=== PATIENT | male | born 1950 | race Caucasian/White ===

== ENCOUNTER → 2020-10-01 08:06 | Outpatient (REF) | payer MEDICARE, BC, SELFPAY ==
--- NOTE | 2020-10-01 08:30 | CA_ITS ---
Transthoracic Echocardiogram Patient (Last, First, Middle): Harpreet Fleming R Gender: Male Date of : 1950 Age: 70 Procedure Date: 10/01/2020 Procedure Type: Transthoracic Echocardiogram Location: OP Height: 180.34 cm Weight: 86.18 kg BSA: 2.06 m2 Heart Rate: bpm BP: 110 / 76 mmHg Loading Dock Helper: Jennifer MD: Kodi Mckeon MD Symptoms: PERSISTENT AFIB I48.1 Study Quality: Good ECG Rhythm: Atrial Fibrillation Conclusions: - The left ventricular systolic function is normal. The visually estimated ejection fraction is between 55-60%. - LV global endocardial peak longitudinal strain -14% (mildly reduced). - The left atrium is severely dilated. - No obvious valvular pathology seen on this study. Findings Left Ventricle Normal left ventricular cavity size. There is normal left ventricular wall thickness. The left ventricular systolic function is normal. The visually estimated ejection fraction is between 55-60%. Diastolic function is indeterminate on the basis of available data. LV global endocardial peak longitudinal strain -14% (mildly reduced). Right Ventricle Normal right ventricular cavity size and systolic function. Atria The left atrium is severely dilated. The right atrium is moderately dilated. Aortic Valve There is a normal trileaflet aortic valve. There is mild calcification of the aortic valve. There is no aortic valve stenosis. There is mild aortic valve regurgitation. Mitral Valve The mitral valve appears normal. There is trace mitral valve regurgitation. There is no mitral valve stenosis. Pulmonic Valve The pulmonic valve was not well visualized. Tricuspid Valve Normal tricuspid valve structure. There is mild tricuspid valve regurgitation. The pulmonary artery systolic pressure is normal. Great Vessels The aortic annulus, sinuses of valsalva, and asc aorta are normal in size. Venous The inferior vena cava is normal in size and collapses greater than 50% with inspiration. Pericardium/Pleural There is no evidence of pericardial effusion. Prior Study Comparison No significant change compared to prior study dated: 03/23/2018. Recommendations, Care & Conclusions No obvious valvular pathology seen on this study. Measurements 2D Linear Measurements RVIDd: 3.36 RVIDd Index: 1.63 IVSd: 0.86 0.6-0.9/0.6-1.0 cm LVIDd: 4.87 3.9-5.3/4.2-5.9 cm LVIDd Index: 2.36 2.4-3.2/2.2-3.1 cm/m2 LVIDs: 3.94 2.0-3.6 cm LVPWd: 1.50 0.7-1.1 cm Ao Root: 3.60 2.1-3.5 cm LA Diam: 5.30 2.7-3.8/3.0-4.0 cm LAIDs Index: 2.57 1.5-2.3 cm/m2 LV Mass: 273.09 67-162/88-224 g LV Mass Index: 132.57 43-95/49-115 g/m2 LVOT Diam: 2.20 3.0+(-)1.3 cm 2D Systolic Function EF 4C: 53.60 >55% EF 2C: 45.70 >55% Aortic Valve AoV Pk Garcia: 1.22 AoV Mn Garcia: 0.90 AoV VTI: 0.27 AoV Pk Grad: 6.00 Aov Mn Grad: 4.00 KAMARI Cont.VTI: 1.91 LVOT LVOT Pk Garcia: 0.68 LVOT Mn Garcia: 0.52 LVOT VTI: 0.14 LVOT Pk Grad: 2.00 LVOT Mn Grad: 1.00 LVOT Diam: 2.20 LVOT Area: 3.80 Tricuspid Valve TR Pk Garcia: 2.17 TR Pk Grad: 19.00 RA Press: 8.00 RVSP: 27.00 Great Vessels Aorta Ao Root-2D: 3.60 2.0-3.7 cm Ao Asc: 3.20 2.1-3.4 cm Updated in Other Vendor System with Status of Final oKdi Mckeon MD electronically signed on 10/01/2020 4:09:26 PM with status of Final
--- NOTE | 2020-10-01 09:30 | ECG_ITS ---
Hook-up date: 2020-10-01 10:10:00 Duration: 27:02:00 Test Indications: PERSISTANT AFIB Medications: [id number] QRS complexes 469 Ventricular ectopics which represent <1 % of total QRS comp. * Supraventricular ectopics which represent % of total QRS comp. * Paced QRS complexs which represent % of total QRS comp. VENTRICULAR ECTOPY 469 Isolated 0 Bigeminal Cycles 0 Couplets 0 Runs 0 Beats in Runs * Beats LONGEST at * BPM at :: -- * Beats FASTEST at * BPM at :: -- SUPRAVENTRICULAR ECTOPY * Isolated * Couplets * Runs * Beats in Runs * Beats LONGEST at * BPM at :: -- * Beats FASTEST at * BPM at :: -- HEART RATES 55 MIN at 01:48:13 2020-10-02 86 AVG 147 MAX at 11:54:55 2020-10-01 LONGEST RR 1.7280 secs at 08:08:15 2020-10-02 S-T LEVELS Channel 1 - 128 mm at 10:10:00 2020-10-01 - 128 mm at 10:10:00 2020-10-01 Channel 2 - 128 mm at 10:10:00 2020-10-01 - 128 mm at 10:10:00 2020-10-01 Channel 3 - 128 mm at 02:92:91 -- - 128 mm at 02:92:91 Underlying rhythm is atrial fibrillation; Average ventricular rate 86/min; range 55-147/min; About 12% of the rates >100/min; No significant bradycardia or pauses; Rare ventricular ectopy; Patient did not report any symptoms in the diary Referred By: Shawn Thompson Overread By: SHAWN THOMPSON
== END ==
LOC: HO.CARD 08:06
PROVIDERS: PCP Internal Medicine; Visit Provider Internal Medicine
DX: I48.19 Other persistent atrial fibrillation (principal)
CPT/HCPCS: 93225; 93226; 93306; 93356

== ENCOUNTER → 2020-10-22 09:18 | Outpatient (BNVA) | payer MEDICARE, BC, SELFPAY | PROVIDERS: PCP Internal Medicine; Referring Provider Internal Medicine; Visit Provider Internal Medicine | DX: I48.19 Other persistent atrial fibrillation (principal); R07.2 Precordial pain; G47.31 Primary central sleep apnea; Q21.1 Atrial septal defect; Z79.01 Long term (current) use of anticoagulants | CPT/HCPCS: 93005; 99212 ==

== ENCOUNTER → 2020-10-28 08:18 | Outpatient (REF) | payer MEDICARE, BC, SELFPAY ==
--- NOTE | 2020-10-28 | NM_ITS ---
Myocardial perfusion study Indication: Chest pain to evaluate for myocardial ischemia Technique: The patient was brought in for a Lexiscan perfusion study on 10/28/2020. Patient performed low-level exercise and was injected 0.4 mg of Lexiscan intravenously. Within a minute of injection, 30 mCi of sestamibi was given intravenously. Images were obtained using the SPECT gamma camera interlaced with the gating device. Images were obtained in supine position. Resting perfusion study was performed on 10/29/2020. Patient was administered 30 mCi of sestamibi intravenously at rest. Images were then obtained in supine position. Images obtained with and without CT attenuation. Total DLP 71 mgy-cm. Images were processed with the software and compared side to side in short axis, horizontal long axis and vertical long axis views. Findings: The stress perfusion study showed non attenuated images show minimally reduced uptake in the inferior wall of the LV myocardium. Remainder of the LV myocardium is normally perfused. Attenuation corrected images show normal uptake of radiotracer in all segments of LV myocardium. The gated study shows normal LV systolic function with calculated LVEF of 68%. LV cavity is normal size. The gated study shows normal systolic wall thickening and contraction of segments. Resting study shows no change in perfusion pattern compared to stress perfusion study. Gating at rest reveals normal systolic wall motion with ejection fraction at greater than 70 %. The findings are consistent with normal myocardial perfusion. NM/NM isaias perf SPECT rest & str Impression: 1. Myocardial perfusion imaging study shows normal myocardial perfusion 2. Gated LVEF is 38% 3. Transient ischemic dilatation not present Stress EKG is nondiagnostic for ischemia
--- NOTE | 2020-10-28 08:22 | CA_ITS ---
Acquisition Time: 2020-10-28 08:35:04 Total Exercise Time: 00:02:00 Test Indications: Chest Pain Medications: APIXABAN ATENOLOL ATORVASTATIN LEVOTHYROXINE OMEPRAZOLE Protocol: LEXISCAN Max HR: 136 BPM 90% of Pred: 150 BPM Max BP: 122/068 mmHG Max Work Load: 1.0 METS Pharmacological stress test using Lexiscan while sitting. Pt tolerated well, denies any anginakl sx. EKG with atrial fib. occ, pvc's seen. Non-diagnostic for ischemia. Nuclear images to follow. Normotensive response to test. Test reviewed with Dr. Mckeon Referred By: Kodi Mckeon Overread By: Azucena Whitlock
== END ==
LOC: HO.CARD 08:18
PROVIDERS: PCP Internal Medicine; Visit Provider Internal Medicine
DX: R07.2 Precordial pain (principal)
CPT/HCPCS: 78452; 93017; A9500; J0280; J2785

== ENCOUNTER → 2020-12-17 08:45 | Outpatient (BNVA) | payer MEDICARE, BC, SELFPAY | PROVIDERS: PCP Internal Medicine; Referring Provider Internal Medicine; Visit Provider Nurse Practitioner Family | DX: G47.31 Primary central sleep apnea (principal) | CPT/HCPCS: Q3014 ==

== ENCOUNTER → 2020-12-23 09:55 | Outpatient (BNVA) | payer MEDICARE, BC, SELFPAY | PROVIDERS: PCP Internal Medicine; Visit Provider Internal Medicine | DX: Z76.89 Persons encountering health services in other specified circumstances (principal) | CPT/HCPCS: Q3014 ==

== ENCOUNTER → 2021-03-11 08:55 | Outpatient (BNVA) | payer MEDICARE, BC, SELFPAY | PROVIDERS: PCP Internal Medicine; Visit Provider Nurse Practitioner Family | DX: Z13.89 Encounter for screening for other disorder (principal) | CPT/HCPCS: Q3014 ==

== ENCOUNTER → 2021-06-12 09:04 | Outpatient (BNVA) | payer MEDICARE, BC, SELFPAY | PROVIDERS: PCP Internal Medicine; Visit Provider Internal Medicine | DX: R07.2 Precordial pain (principal); I48.19 Other persistent atrial fibrillation; G47.31 Primary central sleep apnea; Q21.1 Atrial septal defect | CPT/HCPCS: 99212 ==

== ENCOUNTER → 2021-09-09 08:50 | Outpatient (REF) | payer MEDICARE, BC, SELFPAY | LOC: HO.SL 08:50 | PROVIDERS: PCP Internal Medicine; Visit Provider Nurse Practitioner Family | DX: G47.33 Obstructive sleep apnea (adult) (pediatric) (principal) | CPT/HCPCS: 99211 ==

== ENCOUNTER → 2021-09-16 08:32 | Outpatient (BNVA) | payer MEDICARE, BC, SELFPAY | PROVIDERS: PCP Internal Medicine; Referring Provider Internal Medicine; Visit Provider Nurse Practitioner Family | CPT/HCPCS: Q3014 ==

== ENCOUNTER → 2021-12-01 08:48 | Outpatient (REF) | payer MEDICARE, BC, SELFPAY ==
--- NOTE | 2021-12-03 14:21 | ECG_ITS ---
Hook-up date: 2021-12-01 10:03:00 Duration: 47:17:00 Test Indications: PERSISTANT AFIB Medications: [id number] QRS complexes 810 Ventricular ectopics which represent <1 % of total QRS comp. * Supraventricular ectopics which represent % of total QRS comp. * Paced QRS complexs which represent % of total QRS comp. VENTRICULAR ECTOPY 790 Isolated 0 Bigeminal Cycles 8 Couplets 1 Runs 4 Beats in Runs 4 Beats LONGEST at 163 BPM at 20:34:58 2021-12-01 4 Beats FASTEST at 163 BPM at 20:34:58 2021-12-01 SUPRAVENTRICULAR ECTOPY * Isolated * Couplets * Runs * Beats in Runs * Beats LONGEST at * BPM at :: -- * Beats FASTEST at * BPM at :: -- HEART RATES 63 MIN at 09:24:22 2021-12-02 98 AVG 171 MAX at 22:06:50 2021-12-01 LONGEST RR 1.4720 secs at 08:28:49 2021-12-02 S-T LEVELS Channel 1 - 128 mm at 10:03:00 2021-12-01 - 128 mm at 10:03:00 2021-12-01 Channel 2 - 128 mm at 10:03:00 2021-12-01 - 128 mm at 10:03:00 2021-12-01 Channel 3 - 128 mm at 02:92:21 -- - 128 mm at 02:92:21 Underlying rhythm is atrial fibrillation; Average rate 98/min; range 63-171/min; About 42% of the time, rate>100/min; No significant pauses; Occasional PVCs; longest run 4 beats; cannot exclude aberrant conduction; Patient did not report any symptoms in the diary Referred By: Shawn Thompson Overread By: SHAWN THOMPSON
== END ==
LOC: HO.CARD 08:48
PROVIDERS: PCP Internal Medicine; Referring Provider Internal Medicine; Visit Provider Internal Medicine
DX: I48.19 Other persistent atrial fibrillation (principal)
CPT/HCPCS: 93226

== ENCOUNTER → 2021-12-25 08:56 | Outpatient (BNVA) | payer MEDICARE, BC, SELFPAY | PROVIDERS: PCP Internal Medicine; Referring Provider Internal Medicine; Visit Provider Internal Medicine | DX: I48.19 Other persistent atrial fibrillation (principal); R07.2 Precordial pain; G47.31 Primary central sleep apnea; Q21.1 Atrial septal defect | CPT/HCPCS: 93005; 99212 ==

== ENCOUNTER → 2022-02-10 08:17 | Outpatient (REF) | payer MEDICARE, BC, SELFPAY ==
--- NOTE | 2022-02-10 08:23 | CA_ITS ---
Transthoracic Echocardiogram Patient (Last, First, Middle): Harpreet Fleming R Gender: Male Date of : 1950 Age: 71 Procedure Date: 02/10/2022 Procedure Type: Transthoracic Echocardiogram Location: OP Height: 180.34 cm Weight: 92.99 kg BSA: 2.13 m2 Heart Rate: bpm BP: 119 / 70 mmHg [employer] Head Inspector: MICHELLE Referring MD: Kodi Mckeon MD Symptoms: I48.19 - Other persistent atrial fibrillation Study Quality: Fair ECG Rhythm: Sinus Conclusions: - The left ventricular systolic function is normal. The calculated ejection fraction is 64% by biplane method. - There is mild calcification of the aortic valve. - No obvious valvular pathology seen on this study. Findings Left Ventricle Normal left ventricular cavity size. There is normal left ventricular wall thickness. The left ventricular systolic function is normal. The calculated ejection fraction is 64% by biplane method. There is no evidence of regional wall motion abnormalities. Diastolic function is indeterminate on the basis of available data. Right Ventricle Normal right ventricular cavity size and systolic function. Atria The left atrium is mildly dilated. The right atrium is normal in size. Aortic Valve The aortic valve was not well visualized. There is mild calcification of the aortic valve. There is no aortic valve stenosis. The peak aortic gradient is 6 mmHg.There is no aortic valve regurgitation. Mitral Valve The mitral valve appears normal. There is trace mitral valve regurgitation. There is no mitral valve stenosis. Pulmonic Valve The pulmonic valve was not well visualized. Tricuspid Valve There is mild tricuspid valve regurgitation. The pulmonary artery systolic pressure is normal. Great Vessels The asc aorta is normal in size. Venous The inferior vena cava is normal in size and collapses greater than 50% with inspiration. Pericardium/Pleural There is no evidence of pericardial effusion. Prior Study Comparison No significant change compared to prior study dated: 10/01/2020. Recommendations, Care & Conclusions No obvious valvular pathology seen on this study. Measurements 2D Linear Measurements IVSd: 0.67 0.6-0.9/0.6-1.0 cm LVIDd: 4.52 3.9-5.3/4.2-5.9 cm LVIDd Index: 2.12 2.4-3.2/2.2-3.1 cm/m2 LVIDs: 3.02 2.0-3.6 cm LVPWd: 0.80 0.7-1.1 cm LA Diam: 4.80 2.7-3.8/3.0-4.0 cm LAIDs Index: 2.25 1.5-2.3 cm/m2 LV Mass: 128.04 67-162/88-224 g LV Mass Index: 60.11 43-95/49-115 g/m2 LVOT Diam: 2.20 3.0+(-)1.3 cm 2D Systolic Function EF 4C: 65.40 >55% EF 2C: 61.70 >55% EF BiP: 63.80 >55% Mitral Valve MV Pk E: 0.58 MV Decel Time: 230.00 E'Lateral: 11.90 E'Medial: 8.05 E/E' Med: 7.20 E/E' Lat: 4.90 PHT: 68.00 MVA PHT: 3.24 Decel Norton: 2.54 Aortic Valve AoV Pk Garcia: 1.20 AoV Pk Grad: 6.00 LVOT LVOT Pk Garcia: 0.68 LVOT Mn Garcia: 0.45 LVOT VTI: 0.12 LVOT Pk Grad: 2.00 LVOT Mn Grad: 1.00 LVOT Diam: 2.20 LVOT Area: 3.80 Diastolic Function MV Pk E: 0.58 E'Medial: 8.05 E/E' Med: 7.20 E' Laterial: 11.90 E/E' Lat: 4.90 Tricuspid Valve TR Pk Garcia: 2.09 TR Pk Grad: 17.00 RA Press: 3.00 RVSP: 20.00 Great Vessels Aorta Sinus of Valsalva: 3.78 2.0-3.5 cm Ao Asc: 3.40 2.1-3.4 cm Updated in Other Vendor System with Status of Final Kodi Mckeon MD electronically signed on 02/11/2022 5:02:48 PM with status of Final
--- NOTE | 2022-02-10 08:23 | HM_ITS ---
Conclusion: 1. Patient was monitored for total period of 3 days and 1 hour 2. Baseline numbers atrial fibrillation with average heart rate of 91 beats per minute, borderline rate control with peak heart rate of 155 beats per minute 3. No significant pauses or bradycardia noted 4. Total of 1566 PVCs accounting for 0.39% total beats accounting for occasional PVCs 5. No patient reported events MTDD
== END ==
LOC: HO.CARD 08:17
PROVIDERS: PCP Internal Medicine; Visit Provider Internal Medicine
DX: I48.19 Other persistent atrial fibrillation (principal)
CPT/HCPCS: 93242; 93306

== ENCOUNTER → 2022-03-24 09:56 | Outpatient (BNVA) | payer MEDICARE, BC, SELFPAY | PROVIDERS: PCP Internal Medicine; Visit Provider Nurse Practitioner Family | DX: G47.31 Primary central sleep apnea (principal) | CPT/HCPCS: 99212; Q3014 ==

== ENCOUNTER 2022-03-30 07:51 | Outpatient (REF) | payer MEDICARE, BC, SELFPAY ==
[2022-03-30 10:48] LABS: Digoxin < 0.3 ng/mL (0.8-2.0)
== END 2022-03-30 07:52 | disposition home or self-care (01) ==
LOC: HO.LAB 07:51
PROVIDERS: PCP Internal Medicine; Visit Provider Nurse Practitioner Family
DX: I48.19 Other persistent atrial fibrillation (principal); Z79.899 Other long term (current) drug therapy
CPT/HCPCS: 36415; 80162

== ENCOUNTER → 2022-03-31 08:53 | Outpatient (BNVA) | payer MEDICARE, BC, SELFPAY | PROVIDERS: PCP Internal Medicine; Referring Provider Internal Medicine; Visit Provider Internal Medicine | DX: I48.19 Other persistent atrial fibrillation (principal); Q21.1 Atrial septal defect; G47.31 Primary central sleep apnea; R07.2 Precordial pain | CPT/HCPCS: 99212 ==

== ENCOUNTER → 2022-09-15 07:55 | Outpatient (BNVA) | payer MEDICARE, BC, SELFPAY | PROVIDERS: PCP Internal Medicine; Visit Provider Nurse Practitioner Family | DX: G47.31 Primary central sleep apnea (principal) | CPT/HCPCS: 99212 ==

== ENCOUNTER → 2022-10-15 08:06 | Outpatient (BNVA) | payer MEDICARE, BC, SELFPAY | PROVIDERS: PCP Internal Medicine; Referring Provider Internal Medicine; Visit Provider Internal Medicine | DX: I48.19 Other persistent atrial fibrillation (principal); G47.31 Primary central sleep apnea; R07.2 Precordial pain; Q21.12 Patent foramen ovale | CPT/HCPCS: 99212 ==

== ENCOUNTER → 2023-01-04 10:49 | Outpatient (REF) | payer MEDICARE, BC, SELFPAY ==
--- NOTE | 2023-01-04 10:52 | HM_ITS ---
Conclusion: 1. Patient was monitored for total of 3 days 2. Baseline was n atrial fibrillation with average heart of 76 beats per minute, adequate rate control 3. Rare PVCs noted 4. No significant pauses or bradycardia noted 5. No patient reported symptoms MTDD
== END ==
LOC: HO.CARD 10:49
PROVIDERS: Visit Provider Internal Medicine
DX: I48.19 Other persistent atrial fibrillation (principal)
CPT/HCPCS: 93242

== ENCOUNTER → 2023-05-17 20:30 | Outpatient (REF) | payer MEDICARE, BC, SELFPAY | LOC: HO.SL 20:30 | PROVIDERS: PCP Internal Medicine; Visit Provider Nurse Practitioner Family | DX: G47.33 Obstructive sleep apnea (adult) (pediatric) (principal); G47.31 Primary central sleep apnea | CPT/HCPCS: 95810 ==

== ENCOUNTER 2023-08-18 09:03 | Outpatient (AMB) | payer MEDICARE, BC, SELFPAY ==
--- NOTE | 2023-08-18 09:03 | MHC.OFFVIS ---
Intake Vital Signs 08/18/23 09:08 Height 5 ft 11 in Weight 208 lb BMI 29.0 BP 130/72 Blood Pressure Location Rt brachial Position Sitting Intake Visit Reasons: f/u for sleep compliance per Insurance Request_LVM Intake Note: Patient presents for follow up. Patient states I have a new cpap machine they gave me a month ago or so, they are asking for a letter that describes benefit of using the machine. I brought for her today. Allergies No Known Allergies Allergy (Verified 08/18/23 09:10) HPI HPI Comments History of Present Illness Details 73-yr-old male presents for f/u visit. Pt denies any significant interval medical changes. Since the last visit, his ASV device alerted him that his machine was likely to begin failing, thus we ordered a replaccmenet unit. Insurance required a f/u sleep study. Thus, pt underwent f/u in-lab split-titration PSG- which revealed severe obstructive and central sleep apnea w/ AHI 75/hr w/ O2 mellisa 85%. Pt had best reduction in residual AHI and hypoxemia to setting of ASV EPAP 6, Max PS 15min, PS 3, w/ full face mask. His last Echo in 2021- showed EF 64% He rec'd a new ASV machine in Jun w/ a full face mask. He states that it took some getting used to the new full face mask, but he now feels it is better than the pillows. He uses his machine nightly, sleeps well with use, and feels goood during the day. Compliance report (03/27/23-06/24/23)- showed ASV EPAP 5, Min PS 3, max PS 10, 99% overall use, residual AHI 3.8/hr. [facility] Medical History (Updated 08/18/23 @ 09:57 by IMANI Darby) PFO (patent foramen ovale) Central sleep apnea Persistent atrial fibrillation Surgical History History of tonsillectomy History of skin graft (~1984) Family History Father Metastatic bone cancer Mother Coronary artery disease Social History Alcohol intake: current Alcohol intake frequency: a few times a week Alcohol type: beer Patient Tobacco Use Status: Former Tobacco user Quit Date: 1991 Review of Systems Const All systems reviewed & are unremarkable except as noted in HPI and below Physical Exam Vital Signs: Last Vital Signs BP 130/72 08/18/23 09:08 BMI result Body Mass Index 29.0 Const General: cooperative and no acute distress Orientation/consciousness: patient oriented x3 HEENT Head: Yes normocephalic Resp Effort & Inspection: normal respiratory effort and able to speak in complete sentences Neuro General: patient oriented x3, gait normal and CN's II-XI intact bilaterally Cognition (Neuro): normal cognition Motor exam (neuro): 5/5 motor strength present throughout Psych Appearance: grossly normal Mental Status: mental status grossly normal Speech and movement: Normal speech and movement present Affect: normal affect Attitude: cooperative Assessment & Plan Assessment & Plan (1) Central sleep apnea: Comment: Severe degree of sleep apnea. The AHI was 75/hr and oxygen mellisa was 85% Code(s): G47.31 - Primary central sleep apnea (2) Severe obstructive sleep apnea: Code(s): G47.33 - Obstructive sleep apnea (adult) (pediatric) (3) Persistent atrial fibrillation: Code(s): I48.19 - Other persistent atrial fibrillation Plan Continue ASV EPAP 6, Max PS 15min, Min PS 3, w/ full face mask, as pt is experiencing good clinical effect from use. Will request most updated compliance report and that new machine be tagged to our [employer] account. Clean machine and change supplies routinely. f/u in 6 months or sooner prn. Coding Level of Care Code Est Pt Level 3 (10089) Diagnoses Central sleep apnea G47.31 Severe obstructive sleep apnea G47.33 Persistent atrial fibrillation I48.19
[2023-08-18 09:08] VITALS: BP 130/72; BMI 29.0
== END 2023-08-18 10:04 | disposition home or self-care (01) ==
PROVIDERS: PCP Internal Medicine; Visit Provider Nurse Practitioner Family
DX: G47.31 Primary central sleep apnea (principal); G47.33 Obstructive sleep apnea (adult) (pediatric); I48.19 Other persistent atrial fibrillation
CPT/HCPCS: 99213

== ENCOUNTER → 2023-08-18 09:03 | Outpatient (BNVA) | payer MEDICARE, BC, SELFPAY | PROVIDERS: PCP Internal Medicine; Visit Provider Nurse Practitioner Family | DX: G47.31 Primary central sleep apnea (principal); G47.33 Obstructive sleep apnea (adult) (pediatric); I48.19 Other persistent atrial fibrillation | CPT/HCPCS: 99212 ==

== ENCOUNTER 2023-10-18 08:18 | Outpatient (AMB) | payer MEDICARE, BC, SELFPAY ==
--- NOTE | 2023-10-18 08:28 | A.OFFVIS_ITS ---
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 He has had atrial fibrillation for more than 10 years. Overall, states he is doing well. No specific concerns. He has had some left- sided chest pains randomly for a long time and that is still present. However, nonexertional. In the past, perfusion imaging was unremarkable. With exercise, he states sometimes he gets tired. [facility] Medical History (Updated 08/18/23 @ 09:57 by IMANI Darby) PFO (patent foramen ovale) Central sleep apnea Persistent atrial fibrillation Surgical History History of tonsillectomy History of skin graft (~1984) Family History Father Metastatic bone cancer Mother Coronary artery disease Social History Alcohol intake: current Alcohol intake frequency: a few times a week Alcohol type: beer Patient Tobacco Use Status: Former Tobacco user Quit Date: 1991 Review of Systems Const Denies weakness ENT Denies dizziness Card Denies chest pain, Denies chest pain with activity, Denies syncope, Denies rapid heart rate, Denies pedal edema, Denies edema, Denies leg edema, Denies ligh theadedness, Denies palpitations, Denies dyspnea, Denies dyspnea on exertion and Denies orthopnea Resp Denies cough, Denies dyspnea and Denies dyspnea on exertion GI Denies hematochezia and Denies change in stool character Musc Denies abnormal gait, Denies muscle cramps, Denies muscle weakness, Denies numbness, Denies radiating pain into limb and Denies tingling Neuro Denies abnormal gait, Denies dizziness, Denies syncope, Denies numbness, Denies tingling and Denies weakness Endo Denies palpitations Physical Exam Vital Signs: Last Vital Signs Pulse 82 10/18/23 08:29 BP 108/66 10/18/23 08:29 BMI result Body Mass Index 29.6 Const General: comfortable and no acute distress Orientation/consciousness: patient oriented x3 HEENT Other: Unremarkable Head: Yes normal to inspection Neck Neck: Yes normal visual inspection Chest Chest palpation & inspection: normal inspection of the chest Resp Auscultation: clear to auscultation bilaterally Cardio Palpation: normal PMI Heart sounds: S1 normal heart sound present, S2 normal heart sound present, no gallops, no murmurs and no rubs GI Palpation (GI): Soft to palpation Back/Spine/Pelvis Other: unremarkable Skin General skin exam: no rashes or lesions noted Neuro General: patient oriented x3 Extrem General: Yes normal to inspection Psych Mental Status: mental status grossly normal Office Procedures EKG Details: EKG with atrial fibrillation at a rate of 82/Min; leftward axis; no significant ST-T changes and otherwise unremarkable. [id number], Complete Assessment & Plan Assessment & Plan (1) Persistent atrial fibrillation: Code(s): I48.19 - Other persistent atrial fibrillation Plan: Continue atenolol and digoxin. He does not tolerate higher dose of atenolol due to dizziness. Otherwise, continue with anticoagulation without changes. Due to duration of anticoagulation for more than a decade, not a candidate for cardioversion. He states he had recent lab work at [facility] and hence we can get them. That apparently includes digoxin levels. (2) Central sleep apnea: Comment: Severe degree of sleep apnea. The AHI was 75/hr and oxygen mellisa was 85% Code(s): G47.31 - Primary central sleep apnea Plan: Continue BiPAP. (3) Precordial chest pain: Code(s): R07.2 - Precordial pain Plan: Uncertain etiology. Nonexertional pains and hence coronary disease less likely but not impossible. He has had them for a while. We can recheck perfusion imaging. (4) PFO (patent foramen ovale): Code(s): Q21.1 - Atrial septal defect Plan: Was noted on a prior echocardiogram from [facility]. No specific interventions. Orders: Orders CA lexiscan stress w isaias Today I20.9 - Angina pectoris, unspecified, R07.2 - Precordial pain NM cardiolite stress test Today R07.2 - Precordial pain Coding Level of Care Code Est Pt Level 4 (61813) Diagnoses Persistent atrial fibrillation I48.19 Central sleep apnea G47.31 Precordial chest pain R07.2 PFO (patent foramen ovale) Q21.1 CPT Codes EKG - CPT: 77555-[id number], Complete ([id number])
[2023-10-18 08:29] VITALS: BP 108/66; PULSE 82; BMI 29.6
== END 2023-10-18 08:52 | disposition home or self-care (01) ==
PROVIDERS: Visit Provider Internal Medicine
DX: I48.19 Other persistent atrial fibrillation (principal); G47.31 Primary central sleep apnea; R07.2 Precordial pain; Q21.10 Atrial septal defect, unspecified
CPT/HCPCS: 93010; 99214

== ENCOUNTER → 2023-10-18 08:18 | Outpatient (BNVA) | payer MEDICARE, BC, SELFPAY | PROVIDERS: Visit Provider Internal Medicine | DX: I48.19 Other persistent atrial fibrillation (principal); Q21.12 Patent foramen ovale; G47.31 Primary central sleep apnea | CPT/HCPCS: 93005; 99212 ==

== ENCOUNTER → 2023-12-02 07:54 | Outpatient (REF) | payer MEDICARE, BC, SELFPAY ==
--- NOTE | ~2023-12-02 | NM_ITS ---
Lexiscan Myocardial perfusion study Indication: Atrial fibrillation, assess for coronary disease and ischemia Technique: The patient was brought in for a Lexiscan perfusion study on 12/02/2023 and was injected 0.4 mg of Lexiscan intravenously. Within a minute of this injection 30 mCi of sestamibi was given intravenously. Images were obtained using the SPECT gamma camera interlaced with the gating device. Images were obtained in supine position. Resting perfusion study was performed on 12/06/2023. Patient was administered 30 mCi of sestamibi intravenously at rest. Images were then obtained in supine position. Images were processed with the software and compared side to side in short axis, horizontal long axis and vertical long axis views. Total DLP 165mGy-cm. Findings: Raw acquisition reviewed. Arms by the patient's side. The stress perfusion study showed diminished tracer uptake along the anterior wall. With CT attenuation correction, there is significant improvement suggestive of possibly soft tissue attenuation artifact. The gated study shows normal LV systolic function with calculated LVEF of > 70%. LV cavity is normal in size. The gated study shows normal wall thickening and contraction of segments. Resting study shows mildly reduced tracer uptake in the basal to mid anterolateral wall. There is improvement with CT attenuation correction suggestive of soft tissue attenuation artifact. Gating at rest reveals normal wall motion with ejection fraction at > 70%. The findings are consistent with reversible anterior perfusion defect probably related to soft tissue attenuation artifact. NM/NM cardiolite stress test Impression: 1. Myocardial perfusion imaging study shows no clear evidence of any ischemia or infarction. Probably normal myocardial perfusion. 2. Gated LVEF is > 70% during stress and rest. 3. Transient ischemic dilatation not present. EKG component of the test reported separately.
== END ==
LOC: HO.CARD 07:54
PROVIDERS: PCP Internal Medicine; Visit Provider Internal Medicine
DX: R07.2 Precordial pain (principal); I20.9 Angina pectoris, unspecified
CPT/HCPCS: 78452; 93017; A9500; J0280; J2785

== ENCOUNTER → 2023-12-02 07:58 | Outpatient (BNV) | payer MEDICARE, BC, SELFPAY | PROVIDERS: PCP Internal Medicine; Visit Provider Nurse Practitioner | DX: I48.19 Other persistent atrial fibrillation (principal); R07.2 Precordial pain | CPT/HCPCS: 78452; 93016; 93018 ==

== ENCOUNTER 2024-06-23 07:50 | Outpatient (AMB) | payer MEDICARE, BC, SELFPAY ==
--- NOTE | 2024-06-23 07:51 | MHC.OFFVIS ---
Vital Signs 06/23/24 08:00 Height 5 ft 11 in Weight 203 lb BMI 28.3 BP 122/84 Blood Pressure Location Rt brachial Position Sitting Pulse 76 Pulse Source Pulse Oximeter Pulse Oximetry (%) 98 Oxygen Delivery Method Room Air Intake Visit Reasons: 6 mnts f/u for sleep-LVM Intake Note: Patient presents for 6 month follow up sleep. patient sleeping somewhat ok mind races alot at night. Allergies No Known Allergies Allergy (Verified 06/23/24 08:01) HPI Comments Details: 74-yr-old male presents for f/u visit. Pt denies any significant interval medical changes. Pt states sometimes he wonders if he is always sleeping well. He sometimes notes that when he goes to bed he has ruminating thoughts- sometimes about upcoming obligations but otehr times just thinking. Takes coffee only in the am Rare alcohol intake- a beer at dinner when he goes out to eat. He is active outside- he has been building a dam/pond in his backyard. Does not use the TV or phone in bed. Usual bedtime 11pm, usual wake-up time 8am. Resp supplier: [employer] Compliance Report Usage 03/25/2024 - 06/22/2024 Usage days 90/90 days (100%) Usage days >= 4 hours 90 days (100%) Usage days < 4 hours 0 days (0%) Average usage (days used) 9 hours 19 minutes [employer] 10 ASV Serial number [id number] Mode ASV EPAP 5 cmH2O Min PS 3 cmH2O Max PS 10 cmH2O Therapy Leaks - L/min Median: 1.6 95th percentile: 3.6 Maximum: 11.1 Events per hour AI: 0.2 HI: 0.8 AHI: 1.0 PFSH Medical History (Updated 08/18/23 @ 09:57 by IMANI Darby) PFO (patent foramen ovale) Central sleep apnea Persistent atrial fibrillation Surgical History History of tonsillectomy History of skin graft (~1984) Family History Father Metastatic bone cancer Mother Coronary artery disease Social History Alcohol intake: current Alcohol intake frequency: a few times a week Alcohol type: beer Patient Tobacco Use Status: Former Tobacco user Physical Exam Vital Signs: Last Vital Signs Pulse 76 06/23/24 08:00 BP 122/84 06/23/24 08:00 Pulse Ox 98 06/23/24 08:00 Oxygen Delivery Method Room Air 06/23/24 08:00 BMI result Body Mass Index 28.3 Const General: cooperative and no acute distress Orientation/consciousness: patient oriented x3 Resp Effort & Inspection: normal respiratory effort and able to speak in complete sentences Neuro General: patient oriented x3 Cranial nerves: Yes CN's II-XII intact bilaterally Cognition (Neuro): normal cognition Psych Appearance: grossly normal Mental Status: mental status grossly normal Speech and movement: Normal speech and movement present Affect: normal affect Attitude: cooperative Assessment & Plan Assessment & Plan (1) Central sleep apnea: Comment: Severe degree of sleep apnea. The AHI was 75/hr and oxygen mellisa was 85% Code(s): G47.31 - Primary central sleep apnea Category: Medical (2) Severe obstructive sleep apnea: Code(s): G47.33 - Obstructive sleep apnea (adult) (pediatric) Category: Medical Plan Continue ASV EPAP 5 cmH2O Min PS 3 cmH2O Max PS 10 cmH2O, as pt is experiencing good clinical effect from use w/ good reduction in residual AHI. Discussed strategies to optimize sleep quality. Pt advised that likely he does not require 9 hrs of sleep per night- may try going to bed later or waking earlier. Also may try keeping a note pad by his bed to write down ruminating thoughts r/t upcoming tasks/obligations. Clean machine and change supplies routinely. f/u in 6 months or sooner prn. Coding Level of Care Code Est Pt Level 3 (60528) Diagnoses Central sleep apnea G47.31 Severe obstructive sleep apnea G47.33
[2024-06-23 08:00] VITALS: BP 122/84; PULSE 76; O2SAT 98; BMI 28.3
== END 2024-06-23 08:32 | disposition home or self-care (01) ==
LOC: HO.HSMS 07:51
PROVIDERS: PCP Internal Medicine; Visit Provider Nurse Practitioner Family
DX: G47.31 Primary central sleep apnea (principal); G47.33 Obstructive sleep apnea (adult) (pediatric)
CPT/HCPCS: 99213

== ENCOUNTER → 2024-06-23 07:50 | Outpatient (BNVA) | payer MEDICARE, BC, SELFPAY | PROVIDERS: PCP Internal Medicine; Visit Provider Nurse Practitioner Family | DX: G47.31 Primary central sleep apnea (principal); G47.33 Obstructive sleep apnea (adult) (pediatric); Z99.89 Dependence on other enabling machines and devices | CPT/HCPCS: 99212 ==

== ENCOUNTER 2024-10-17 07:56 | Outpatient (AMB) | payer MEDICARE, BC, SELFPAY ==
--- NOTE | 2024-10-17 08:20 | MHC.OFFVIS ---
Vital Signs 10/17/24 08:21 Height 5 ft 11 in Weight 197 lb 15.602 oz BMI 27.6 BP 108/62 Blood Pressure Location Rt brachial Position Sitting Pulse 78 Pulse Source Monitor Intake Visit Reasons: 1 yr f/up Biomathematician Required: No Allergies No Known Allergies Allergy (Verified 10/17/24 08:23) Medication List - Last Reconciled 10/17/24 by Kodi Mckeon MD apixaban (Eliquis) 5 mg PO BID atenolol 50 mg PO DAILY atorvastatin 40 mg PO DAILY digoxin 125 mcg PO DAILY fluticasone propionate 50 mcg/actuation sprays intranasal levothyroxine (Synthroid) 125 mcg PO DAILY omeprazole 20 mg PO BID HPI Comments Details: Harpreet returns for follow-up regarding atrial fibrillation. He has had atrial fibrillation for more than 10 years. He has had longstanding atypical chest pains which are nonexertional and in fact worse during rest than during exertion and hence suspected to be noncardiac. Otherwise, no specific cardiac concerns. Getting along fine. Overall, he states he is feeling the same as he has always felt. [facility] Medical History (Updated 08/18/23 @ 09:57 by IMANI Darby) PFO (patent foramen ovale) Central sleep apnea Persistent atrial fibrillation Surgical History History of tonsillectomy History of skin graft (~1984) Family History Father Metastatic bone cancer Mother Coronary artery disease Social History Alcohol intake: current Alcohol intake frequency: a few times a week Alcohol type: beer Patient Tobacco Use Status: Former Tobacco user Review of Systems ENT Reports dizziness Card Denies chest pain, Denies chest pain at rest, Denies chest pain with activity, Denies rapid heart rate, Denies pedal edema, Denies edema, Denies leg edema, Denies lightheadedness, Denies palpitations, Denies dyspnea, Denies dyspnea on exertion and Denies orthopnea Resp Denies cough, Denies dyspnea and Denies dyspnea on exertion GI Denies hematochezia and Denies change in stool character Musc Denies abnormal gait, Reports limited range of motion, Reports muscle cramps, Denies muscle weakness, Denies numbness, Denies radiating pain into limb, Denies stiffness and Denies tingling Neuro Denies abnormal gait, Reports dizziness, Denies numbness and Denies tingling Endo Denies palpitations Physical Exam Vital Signs: Last Vital Signs Pulse 78 10/17/24 08:21 BP 108/62 10/17/24 08:21 BMI result Body Mass Index 27.6 Const General: comfortable and no acute distress Orientation/consciousness: patient oriented x3 HEENT Other: Unremarkable Head: Yes normal to inspection Neck Neck: Yes normal visual inspection Chest Chest palpation & inspection: normal inspection of the chest Resp Auscultation: clear to auscultation bilaterally Cardio Palpation: normal PMI Heart sounds: S1 normal heart sound present, S2 normal heart sound present, no gallops, no murmurs and no rubs GI Palpation (GI): Soft to palpation Back/Spine/Pelvis Other: unremarkable Skin General skin exam: no rashes or lesions noted Neuro General: patient oriented x3 Extrem General: Yes normal to inspection Psych Mental Status: mental status grossly normal Office Procedures EKG Details: EKG with atrial fibrillation at 78/Min; leftward axis; artifact in tracing. [id number], Complete Assessment & Plan Assessment & Plan (1) Persistent atrial fibrillation: Code(s): I48.19 - Other persistent atrial fibrillation Category: Medical Plan: Continue atenolol and digoxin. He does not tolerate higher dose of atenolol due to dizziness. Otherwise, continue with anticoagulation without changes. We will obtain digoxin levels from [facility]. If not, we will need to get it done. Last available creatinine 1.1. (2) Central sleep apnea: Comment: Severe degree of sleep apnea. The AHI was 75/hr and oxygen mellisa was 85% Code(s): G47.31 - Primary central sleep apnea Category: Medical Plan: Continue BiPAP. (3) Precordial chest pain: Code(s): R07.2 - Precordial pain Category: Medical Plan: This is longstanding going back many years. He states with exertion, he feels fine. Suspect noncardiac. Myocardial perfusion imaging study from 12/18/2023 with likely normal perfusion. (4) PFO (patent foramen ovale): Code(s): Q21.1 - Atrial septal defect Category: Medical Plan: Was noted on a prior echocardiogram from [facility]. No specific interventions. Coding Level of Care Code Est Pt Level 4 (28680) Diagnoses Persistent atrial fibrillation I48.19 Central sleep apnea G47.31 Precordial chest pain R07.2 PFO (patent foramen ovale) Q21.1 CPT Codes EKG - CPT: 24455-[id number], Complete ([id number])
[2024-10-17 08:21] VITALS: BP 108/62; PULSE 78; BMI 27.6
== END 2024-10-17 08:38 | disposition home or self-care (01) ==
PROVIDERS: PCP Internal Medicine; Visit Provider Internal Medicine
DX: I48.19 Other persistent atrial fibrillation (principal); G47.31 Primary central sleep apnea; R07.2 Precordial pain; Q21.10 Atrial septal defect, unspecified
CPT/HCPCS: 93010; 99214

== ENCOUNTER → 2024-10-17 07:56 | Outpatient (BNVA) | payer MEDICARE, BC, SELFPAY | PROVIDERS: PCP Internal Medicine; Visit Provider Internal Medicine | DX: I48.19 Other persistent atrial fibrillation (principal); R07.2 Precordial pain; G47.31 Primary central sleep apnea; Q21.12 Patent foramen ovale; R94.31 Abnormal electrocardiogram [ECG] [EKG] | CPT/HCPCS: 93005; 99212 ==

== ENCOUNTER 2025-10-09 08:06 | Outpatient (AMB) | payer MEDICARE, BC, SELFPAY ==
--- OUTSIDE RECORDS SUMMARY | 2025-10-09 08:09 | XMS_ITS | Clinical Summary ---
Author Organization [facility] [address] Address [address] [place] [address] Phone Care Team Providers Care Farm Equipment Maintenance Supervisor Name Role Phone Rosendo Owens MD Primary Care Provider [phone] Social History Tobacco Use Types Packs/Day Years Used Date Smoking Tobacco: Never Assessed Sex and Gender Information Value Date Recorded Sex Assigned at Not on file Legal Sex Male 2:57 PM EST Gender Identity Not on file Sexual Orientation Not on file Plan of Treatment Health Maintenance Due Date Last Done Comments DTaP,Tdap,and Td Vaccines (1 - Tdap) 1969 Pneumococcal Vaccine: 50+ Ye ars (1 of 1 - PCV) 2000 Zoster Vaccines (1 of 2) 2000 Abdominal Aortic Aneurysm (A AA) Screen 11/02/2024 Cholesterol Screening (Lipid Panel) 11/02/2024 Falls Risk Assessment 11/02/2024 Hepatitis C Screening 11/02/2024 Medicare Annual Wellness Visit 11/02/2024 Social Influencers of Health Screening 11/02/2024 Depression Screening 11/29/2024 RSV Immunization Adult Patie nts (1 - 1-dose 75+ series) 2025 COVID-19 Vaccine ( - 2023-2 5 season) 2025 Influenza Vaccine (#1) 2025 Colorectal Cancer Screening: Colonoscopy 10/07/2028 10/07/2018 HIB Vaccines Aged Out No longer eligi ble based on patient's age to complete this topic HPV Vaccines Aged Out No longer eligi ble based on patient's age to complete this topic Hepatitis A Vaccines Aged Out No long er eligible based on patient's age to complete this topic Hepatitis B Vaccines Aged Out No long er eligible based on patient's age to complete this topic IPV Vaccines Aged Out No longer eligi ble based on patient's age to complete this topic MMR Vaccines Aged Out No longer eligi ble based on patient's age to complete this topic Meningococcal ACWY Vaccine Aged Out N o longer eligible based on patient's age to complete this topic Meningococcal B Vaccine Aged Out No l onger eligible based on patient's age to complete this topic RSV Immunization Patients Un jose manuel 20 months Aged Out No longer eligible b ased on patient's age to complete this topic Varicella Vaccines Aged Out No longer eligible based on patient's age to complete this topic Procedures Procedure Name Priority Date/Time Associated Diagnosis Comments EXTERNAL COLONOSCOPY REPORT Routine 10/07/2018 9:21 AM EST from Last 3 Months or Most Recently Relevant to Health Maintenance Results * External Colonoscopy Report (10/07/2018 9:21 AM EST) Anatomical Region Laterality Modality Endoscopy us Historical Provider GI~PROCEDURE ORDERABLES F inal Result from Last 3 Months or Most Recently Relevant to Health Maintenance Insurance MEDICARE [facility] Care Teams Farm Equipment Maintenance Supervisor Relationship Specialty Start Date End Date Rosendo Owens MD [address] [place] [address] PCP - General Internal Medicine 11/02/24
--- OUTSIDE RECORDS SUMMARY | 2025-10-09 08:09 | XMS_ITS | Data Portability ---
Author Organization [place] - [facility], All[facility] Address [address] [place] [address] Care Team Providers Care Wind Turbine Blade Repair Technician Name Role Phone MARICEL DRUMMOND Primary Care Provider Assessment Encounter Date Assessment Date Assessment LastModified by Organization Details LastModified Time 09/25/2024 09/25/2024 Patient with stable bilateral tinnitus. [facility] He notes his nasal breathing has been good and his sense of smell stable albeit reduced. 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 Follow-up in 1 year shilpa Not available 09/25/2024 09:13:40 09/24/2025 09/24/2025 Overall doing well. He [facility] and management of his hearing loss/tinnitus. Refills for azelastine and fluticasone given. Follow-up in 1 year with PA Maksim Buck Bernadette is a 75-year-old male with persistent tinnitus in both ears and long-standing hearing loss, worse in the left ear. He also has a history of nasal polyps treated with sinus surgery approximately thirty years ago, with no recent sinus infections reported. The patient will continue using his current nasal sprays and Astellin as prescribed. Refills for his medications will be sent to his preferred mail-order pharmacy. The [facility] and [facility]. FOLLOW-UP: The patient will see the PA in one year for routine follow-up. shilpa Not available 09/24/2025 09:35:07 Plan of Treatment Reminders Order Date Submit Date Provider Last Modified By Organization Details Last Modified Time Details Appointments Establish ed 15 2025 09:00A M TROY HALL Not available Not available Not available Lab None recorded. Referral None recorded. Procedures None recorded. Surgeries None recorded. Imaging None recorded. Medication Orders azelastin e 137 mcg (0.1 %) nasal spray 2024 [facility], [facility] [place], [id number], 09/24/2025 09:07:23 fluticaso ne propionat e 50 mcg/actua tion nasal spray,rebecca pension [address] [facility], [facility] [place], [address], 09/24/2025 09:07:22 fluticaso ne propionat e 50 mcg/actua tion nasal spray,rebecca pension 2023 [facility], [address] [place], [address], 09/25/2024 09:13:04 azelastin e 137 mcg (0.1 %) nasal spray 2023 [facility], [address] [place], [address], 09/25/2024 09:13:04 Patient TargetsNo targets recorded. Patient Instructions Encounter Date Encounter Id Patient Instructions Last Modified By Organization Details Last Modified Time 09/24/2025 [id number] - Continue using nasal sprays and Astellin as prescribed. - [facility] and [facility]. - Return for routine follow-up with the PA in one year. shilpa Not available 09/24/2025 09:35:07 Please note: Parts of this encounter note have been generated by AI based on audio conversation. Patient consent was required prior to utilizing this technology. Content review was required prior to finalizing the note. shilpa Not available 09/24/2025 09:35:07 Reason for Referral None Reported. Problems Name Problem SNOMED Code Status Onset Date Resolution Date Notes Provider Name and Address Organization Details Recorded Time Bilateral tinnitus 51832575972 02 Active 2015 Tinnitus, bilateral ; Note: Date Diagnosed : 09/01/2016 1:42 PM (H93.13) Not Available [facility] 4 03:06:03 Sensorine ural hearing loss of bilateral ears 722121780 Active 2015 Sensorine ural hearing loss, bilateral ; Note: Date Diagnosed : 09/01/2016 1:42 PM (H90.3) Not Available [facility] 4 03:06:04 Sleep apnea 47492205 Active 2018 Sleep apnea NOS; Note: Date Diagnosed : 03/09/2019 8:49 AM (G47.30) Not Available [facility] 4 03:06:02 Chronic rhinitis 43766760 Active 2018 Chronic rhinitis; Note: Date Diagnosed : 03/09/2019 8:49 AM (J31.0) Not Available [facility] 4 03:06:03 Allergic rhinitis 60144165 Active 2018 Other allergic rhinitis; Note: Date Diagnosed : 05/29/2019 9:04 AM (J30.89) Not Available [facility] 4 03:06:03 Bleeding from nose 926995395 Active 2020 Epistaxis ; Note: Date Diagnosed : 04/11/2021 9:12 AM (R04.0) Not Available [facility] 4 03:06:02 Polyp of nasal cavity 973568556 Active 2020 Polyp of nasal cavity; Note: Date Diagnosed : 07/11/2021 9:18 AM (J33.0) Not Available [facility] 4 03:06:02 Gastroeso phageal reflux disease without esophagit is 233782168 Active 2020 Esophagea l reflux NOS; Note: Date Diagnosed : 1 9:20 AM (K21.9) Not Available [facility] 4 03:06:02 Atrial fibrillat ion 42512115 Active 2022 Unspecifi ed atrial fibrillat ion; Note: Date Diagnosed : 3 9:06 AM (I48.91) Not Available [facility] 4 03:06:03 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, [place], [address] , [place] [facility] 4 09:12:16 Problem Notes None recorded. Procedures Surgical History Date Name Laterality Status Provider Name and Address Organization Details Recorded Time 5 JMSNasal/Sinus Endoscopy-PRIO R surgical cavities completed ERWIN BARBOSA MD [address] [facility], [place], [address], [place] - [facility] 09/24/2025 09:06:57 4 JMSNasal/Sinus Endoscopy-PRIO R surgical cavities completed ERWIN BARBOSA MD [address] [facility], [place], [address], [place] - [facility] 09/25/2024 09:11:49 operation on accessory sinus completed ERWIN BARBOSA MD [address] [facility], [place], [address], [place] - [facility] 09/24/2025 09:06:14 Imaging Results None recorded. Procedure Notes None recorded. Medical Equipment None Reported. Allergies No known drug allergies Medications Name Sig Start Date Stop Date Status Note LastModified by Organization Details LastModified Time atorvasta tin 40 mg tablet TAKE 1 TABLET DAILY. REPLACES SIMVASTA TIN active Not Available Not Available No t Available Synthroid 125 mcg tablet TAKE 1 TABLET DAILY active Not Available Not Available No t Available prednison e 20 mg tablet TAKE 2 TABLETS DAILY FOR 5 DAYS active Not Available Not Available No t Available levothyro xine 100 mcg tablet 09/28 completed Medicati on ID: [id number] D uration Value: 90 Brand Name: levothyr oxine Se nd Method: E-Prescr ibed Sub s Allowed: subs OK Medic ationGen ericName : levothyr oxine Not Available Not Available Not Available lansopraz ole 30 mg capsule,d elayed release 04/01 completed Medicati on ID: [id number] D uration Value: 30 Brand Name: lansopra zole Sen d Method: E-Prescr ibed Sub s Allowed: subs OK Medic ationGen ericName : lansopra zole Not Available Not Available Not Available omeprazol e 20 mg capsule,d elayed release TAKE 1 CAPSULE TWICE DAILY active Not Available Not Available No t Available digoxin 125 mcg (0.125 mg) tablet TAKE 1 TABLET DAILY active Not Available Not Available No t Available azelastin e 137 mcg (0.1 %) nasal spray [place] 2 sprays twice a day by intranas al route. 2024 active Not Available Not Available Not Avai lable fluticaso ne propionat e 50 mcg/actua tion nasal spray,rebecca pension [place] 1 spray twice a day by intranas al route for 30 days. 2024 active Not Available Not Available Not Avai lable atenolol 50 mg tablet TAKE 1 TABLET DAILY active Not Available Not Available No t Available ipratropi um bromide 21 mcg (0.03 %) nasal spray 09/28 completed Medicati on ID: [id number] B rand Name: ipratrop ium bromide Send Method: E-Prescr ibed Sub s Allowed: subs OK Medic ationGen ericName : ipratrop ium bromide Not Available Not Available Not Available amoxicill in 875 mg-potass ium clavulana te 125 mg tablet TAKE 1 TABLET EVERY 12 HOURS FOR 10 DAYS 09/21 completed Not Available Not Available Not Available Eliquis 5 mg tablet TAKE 1 TABLET TWICE A DAY active Not Available Not Available No t Available Vitals Date Recorded Body height Body mass index (BMI) Body weight Systolic And Diastolic Provider Name and Address Organization Details Last Updated DateTime 09/24/2025 180.34 cm 27.3 kg/m2 99912.1 g 120/82 mm[Hg] Jesse Lynne [place] - [facility] 09/24/2025 08:43:28 Date Recorded Body height Body mass index (BMI) Body weight Provider Name and Address Organization Details Last Updated DateTime 09/25/2024 180.34 cm 27.3 kg/m2 03396.1 g Laurel Burroughs [facility] 09/25/2024 08:59:30 Social History None recorded. Functional Status None recorded. Mental Status None recorded. Family History Nothing Reported. Medical History No medical history recorded. Past Encounters Encounter ID Performer Location Encounter Start Date Encounter Closed Date Diagnosis/Indication Diagnosis SNOMED-CT Code Diagnosis ICD10 Code Diagnosis IMO Codes Diagnosis Note [id number] ERWIN RAI MD [facility] [address] [address] 09/25/2024 08:47:22 09/25/2024 09:20:06 Bilateral tinnitus 8092922587 102 H93.13 Allergic rhinitis 276561 04 J30.89 J30.9 [id number] ERWIN RAI MD [facility] [address] [address] 09/24/2025 08:33:21 09/24/2025 09:05:49 Sensorineural hearing loss of bilateral ears 599569452 H90.3 Chronic sinusitis 087448 00 J32.9 Bilateral tinnitus 73672 43851 102 H93.13 Allergic rhinitis 961448 04 J30.89 J30.9 Health Concerns Section Related Observation LastModified by Organization Detai ls LastModified Time None Recorded Concern Status LastModified by Organization Details LastModified Time None Recorded Advance Directives Directive None Recorded Payers Insurance Date Sequence Insurance Name Policy Number Policy Conley Covered Member ID Conley Member ID Guarantor Name 09/24/2025 1 [place]: [employer] Harpreet Fleming [id number] Harpreet Fleming 09/21/2025 2 [place] [id number] Harpreet Fleming [id number] Harpreet Fleming Notes Date Note Type Note Provider Name and Address Organization Details Recorded Time 09/25/2024 text/html Long hx of bilateral tinnitus with hearing aids through [facility]. Hx of sinus surgery over 30 years ago. Using FP and Astelin for polypoid sinus tissueBreathing is OK and sense of smell reduced ERWIN BARBOSA MD [address] [place] [address],[address], [address], [facility] 09/25/2024 09:13:58 09/24/2025 text/html Follow-up perennial allergic rhinitis and bilateral tinnitus. Receives hearing aids from the [facility]. Overall doing well breathing and sense of smell are good. Remote history of sinus surgery some 30 years ago Maksim Fleming is a 75-year-old male who presents for routine follow-up. The patient reports no recent sinus infections and states that his breathing and sense of smell remain stable. He continues to use two nasal sprays in the morning and Astellin in the evening. The patient underwent sinus surgery approximately thirty years ago for nasal polyps, which he recalls improved his symptoms significantly. He reports persistent ringing in both ears and hearing loss in the left ear, which has been worse than the right for a long time. He last had his hearing checked in September at the [facility], where he also receives his hearing aids. The patient requests refills for his medications and prefers mail-order delivery for prescriptions. ERWIN BARBOSA MD [address],[place] [address], [place], [address], [facility] 09/24/2025 12:35:49
--- OUTSIDE RECORDS SUMMARY | 2025-10-09 08:09 | XMS_ITS | Encounter Summary ---
Author Organization [facility] Address [address] [place] [address] Care Team Providers Care Used Car Renovator Name Role Phone Rosendo Owens MD Primary Care Provider [phone] Encounter Details Date Type Department Care Team (Late st Contact Info) Description 02/19/2025 Lab Requisition [facility] - Main Lab [address] [facility] [place] [address] Vianey Melton MD [address] [facility] [address] [place] [address] Ferrer's esophagus with dysplasia, unspecified Social History Tobacco Use Types Packs/Day Years Used Date Smoking Tobacco: Never Assessed Sex and Gender Information Value Date Recorded Sex Assigned at Not on file Legal Sex Male 2:57 PM EST Gender Identity Not on file Sexual Orientation Not on file documented as of this encounter Progress Notes * Vianey Melton MD - 02/19/2025 9:54 AM EDT Please let patient know that biopsies showed Ferrer's esophagus. No dysplasia (precancerous changes) seen. Repeat EGD in 5 years. documented in this encounter Plan of Treatment Not on file documented as of this encounter Procedures Procedure Name Priority Date/Time Associated Diagnosis Comments TISSUE EXAM Routine 02/16/2025 Ferrer's esophagus with dysplasia, unspecified documented in this encounter Results * Tissue Exam (02/16/2025) Final Diagnosis Esophagus, biopsy: Fragments of gastric mucosa with intestinal metaplasia, compatible with Ferrer's esophagus. Negative for dysplasia. Note: Esophageal squamous mucosa is not identified. 02/22/2025 1:59 PM EDT [facility] Clinical Information Surveillance for malignancy due to personal history of ferrer's Finding: History of Barretts 02/22/2025 1:59 PM EDT [facility] Gross Description A. Esophagus, biopsy: Labeled esophagus, history of Ferrer's . Received in formalin are two soft, plascencia-white, red-stippled tissue fragments measuring 0.2 cm and 0.3 cm in greatest diameter, which are wrapped in paper and submitted in toto in one cassette, two pieces, multiple levels. TS 02/22/2025 1:59 PM EDT [facility] Disclaimer Unless otherwise specified, all tissue is 10% NB formalin fixed and paraffin embedded. 02/22/2025 1:59 PM EDT [facility] Tissue Esophageal structure / Unknown 02/16/2025 02/19/2025 9:58 AM EDT Vianey Melton MD LAB PATHOLOGY ORDERABLES Final Result [facility] [address] [place] [address], documented in this encounter Visit Diagnoses Diagnosis Ferrer's esophagus with dysplasia, unspecified documented in this encounter Care Teams Used Car Renovator Relationship Specialty Start Date End Date Rosendo Owens MD [facility] [place] [address] PCP - General Internal Medicine 11/02/24 documented as of this encounter
--- OUTSIDE RECORDS SUMMARY | 2025-10-09 08:09 | XMS_ITS | Continuity of Care Document ---
Author Organization [place] - [facility], [facility] Address [address] [place] [address] Care Team Providers Care Table Setter Name Role Phone MARICEL DRUMMOND Primary Care Provider Assessment Encounter Date Assessment Date Assessment LastModified by Organization Details LastModified Time 09/24/2025 09/24/2025 Overall doing well. He will follow-up with the [facility] for his hearing aids and management of his hearing loss/tinnitus. Refills for azelastine and fluticasone given. Follow-up in 1 year with TROY Schaeffer Cielo Fleming is a 75-year-old male with persistent tinnitus [...] PA in one year for routine follow-up. [email or web address] Not available 09/24/2025 09:35:07 Plan of Treatment Reminders Order Date Submit Date Provider Last Modified By Organization Details Last Modified Time Details Appointments Establish ed 15 2025 09:00A M TROY HALL Not available Not available Not available Lab None recorded. Referral None recorded. Procedures None recorded. Surgeries None recorded. Imaging None recorded. Medication Orders azelastin e 137 mcg (0.1 %) nasal spray 2024 025 [facility] [place], [address], 09/24/2025 09:07:23 fluticaso ne propionat e 50 mcg/actua tion nasal spray,rebecca pension 2024 [facility], [place], [address], 09/24/2025 09:07:22 Patient TargetsNo targets recorded. Patient Instructions Encounter Date Encounter Id Patient Instructions Last Modified By Organization Details Last Modified Time 09/24/2025 [id number] - Continue using nasal sprays and Astellin as prescribed. - [facility] - Return for routine follow-up with the PA in one year. [email or web address] Not available 09/24/2025 09:35:07 Please note: Parts of this encounter note have been generated by AI based on audio conversation. Patient consent was required prior to utilizing this technology. Content review was required prior to finalizing the note. [email or web address] Not available 09/24/2025 09:35:07 Reason for Referral None Reported. Problems Name Problem SNOMED Code Status Onset Date Resolution Date Notes Provider Name and Address Organization Details Recorded Time Bilateral tinnitus 37592543858 02 Active 2015 Tinnitus, bilateral ; Note: Date Diagnosed : 09/01/2016 1:42 PM (H93.13) Not Available [facility] 4 03:06:03 Sensorine ural hearing loss of bilateral ears 306992060 Active 2015 Sensorine ural hearing loss, bilateral ; Note: Date Diagnosed : 09/01/2016 1:42 PM (H90.3) Not Available [facility] 4 03:06:04 Sleep apnea 11337293 Active 2018 Sleep apnea NOS; Note: Date Diagnosed : 03/09/2019 8:49 AM (G47.30) Not Available [facility] 4 03:06:02 Chronic rhinitis 36172772 Active 2018 Chronic rhinitis; Note: Date Diagnosed : 03/09/2019 8:49 AM (J31.0) Not Available [facility] 4 03:06:03 Allergic rhinitis 71586596 Active 2018 Other allergic rhinitis; Note: Date Diagnosed : 05/29/2019 9:04 AM (J30.89) Not Available [facility] 4 03:06:03 Bleeding from nose 687309526 Active 2020 Epistaxis ; Note: Date Diagnosed : 04/11/2021 9:12 AM (R04.0) Not Available [facility] 4 03:06:02 Polyp of nasal cavity 396879485 Active 2020 Polyp of nasal cavity; Note: Date Diagnosed : 07/11/2021 9:18 AM (J33.0) Not Available [facility] 4 03:06:02 Gastroeso phageal reflux disease without esophagit is 336413146 Active 2020 Esophagea l reflux NOS; Note: Date Diagnosed : 1 9:20 AM (K21.9) Not Available [facility] 4 03:06:02 Atrial fibrillat ion 63421907 Active 2022 Unspecifi ed atrial fibrillat ion; Note: Date Diagnosed : 3 9:06 AM (I48.91) Not Available [facility] 4 03:06:03 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 - [facility] 4 09:45:07 Chronic sinusitis 68298017 Active 2023 ERWIN RAI MD [address] [facility],[place] [address], [place], [address] , [place] [facility] 4 09:12:16 Non-aller gic rhinitis 31675904082 1 Active 2023 ERWIN RAI MD [address] [facility],[place] [address], [place], [address] , [place] [facility] 4 09:12:16 Seasonal allergic rhinitis 930099263 Active 2023 ERWIN RAI MD [address] [facility],ANITA [facility], [place], [address] , [facility] - [facility] 09:12:16 Problem Notes None recorded. Procedures Surgical History Date Name Laterality Status Provider Name and Address Organization Details Recorded Time 5 JMSNasal/Sinus Endoscopy-PRIO R surgical cavities completed ERWIN BARBOSA MD [address] [facility],[place] [facility], [place], [address], [place] - [facility] 09/24/2025 09:06:57 4 JMSNasal/Sinus Endoscopy-PRIO R surgical cavities completed ERWIN BARBOSA MD [address] [facility],[place] [address], [place], [address], [place] - [facility] 09/25/2024 09:11:49 operation on accessory sinus completed ERWIN BARBOSA MD [address] [facility],[place]ITA [facility], [place], [address], [facility] - [facility] 09/24/2025 09:06:14 Imaging Results None recorded. Procedure [...] mcg tablet 09/28 completed Medicati on ID: [id number] D uration Value: 90 Brand Name: levothyr oxine Se nd Method: E-Prescr ibed Sub s Allowed: subs OK Medic ationGen ericName : levothyr oxine Not Available Not Available Not Available lansopraz ole 30 mg capsule,d elayed release 04/01 completed Medicati on ID: [id number] D uration Value: 30 Brand Name: lansopra [...] e 137 mcg (0.1 %) nasal spray [place] 2 sprays twice a day by intranas al route. 2024 active Not Available Not Available Not Avai lable fluticaso ne propionat e 50 mcg/actua tion nasal spray,rebecca pension [place] 1 spray twice a day by intranas al route for 30 days. 2024 active Not Available Not Available Not Avai lable atenolol 50 mg tablet TAKE 1 TABLET DAILY active Not Available Not Available No t Available ipratropi um bromide 21 mcg (0.03 %) nasal spray 09/28 completed Medicati on ID: [id number] B rand Name: ipratrop ium bromide Send [...] Updated DateTime 09/24/2025 180.34 cm 27.3 kg/m2 00942.1 g 120/82 mm[Hg] Jesse Lynne [place] - [facility] 09/24/2025 08:43:28 Social History None recorded. Functional Status None recorded. Mental Status None recorded. Family History Nothing Reported. Medical History No medical history recorded. Past Encounters Encounter ID Performer Location Encounter Start Date Encounter Closed Date Diagnosis/Indication Diagnosis SNOMED-CT Code Diagnosis ICD10 Code Diagnosis IMO Codes Diagnosis Note [id number] ERWIN RAI MD [facility] [address] [place] [address] 09/24/2025 08:33:21 09/24/2025 09:05:49 Sensorineural hearing loss of bilateral ears 418898149 H90.3 Chronic sinusitis 313853 00 J32.9 Bilateral tinnitus 36066 47779 102 H93.13 Allergic rhinitis 279813 04 J30.89 J30.9 Health Concerns Section Related Observation LastModified by Organization Detai ls LastModified Time None Recorded Concern Status LastModified by Organization Details LastModified Time None Recorded Payers Encounter Date Sequence Insurance Name Policy Number Policy Conley Covered Member ID Conley Member ID Guarantor Name 09/24/2025 1 [place] [employer] Harpreet Fleming [id number] Harpreet Fleming 09/24/2025 2 [place] [id number] Harpreet Fleming [id number] Harpreet Fleming Notes Date Note Type Note Provider Name and Address Organization Details Recorded Time 09/24/2025 text/html Follow-up perennial allergic rhinitis and bilateral tinnitus. Receives hearing aids from the [facility]. Overall doing well breathing and sense of [...] his hearing checked in [place] at the [place], where he also receives his hearing aids. The patient requests refills for his medications and prefers mail-order delivery for prescriptions. ERWIN BARBOSA MD [address] [place] [address], [place], [address], [facility] - [facility] 09/24/2025 12:35:49
--- NOTE | 2025-10-09 08:14 | A.OFFVIS_ITS ---
Vital Signs 10/09/25 08:15 Height 5 ft 11 in Weight 201 lb 0.985 oz BMI 28.0 BP 100/64 Blood Pressure Location Lt brachial Position Sitting Pulse 80 Pulse Source Monitor Intake Visit Reasons: 1 yr follow up I O Psychologist Required: No Allergies No Known Allergies Allergy (Verified 10/17/24 08:23) Medication List - Last Reconciled 10/09/25 by Kodi Mckeon MD apixaban (Eliquis) 5 mg PO BID atenolol 50 mg PO DAILY atorvastatin 40 mg PO DAILY digoxin 125 mcg PO DAILY fluticasone propionate 50 mcg/actuation sprays intranasal levothyroxine (Synthroid) 125 mcg PO DAILY omeprazole 20 mg PO BID HPI Comments Details: Harpreet returns for follow-up regarding atrial fibrillation. He has had atrial fibrillation for more than 10 years. He has had longstanding atypical chest pains which are nonexertional and in fact worse during rest than during exertion and hence suspected to be noncardiac. Since last visit, he states he is feeling good. No cardiac symptoms whatsoever. [facility] Medical History PFO (patent foramen ovale) Central sleep apnea Persistent atrial fibrillation Surgical History History of tonsillectomy History of skin graft (~1984) Family History Father Metastatic bone cancer Mother Coronary artery disease Social History Alcohol intake: current Alcohol intake frequency: a few times a week Alcohol type: beer Patient Tobacco Use Status: Former Tobacco user Review of Systems Const Denies chills, Denies fatigue, Denies fever(s), Denies frequent falls, Denies weakness, Denies weight gain and Denies weight loss ENT Denies dizziness Card Denies chest pain, Denies leg edema, Denies lightheadedness, Denies palpitations, Denies dyspnea and Denies dyspnea on exertion Resp Denies cough, Denies dyspnea and Denies dyspnea on exertion GI Denies hematochezia Musc Denies abnormal gait, Denies muscle weakness, Denies numbness, Denies radiating pain into limb and Denies tingling Neuro Denies abnormal gait, Denies dizziness, Denies frequent falls, Denies numbness, Denies tingling and Denies weakness Endo Denies fatigue and Denies palpitations Physical Exam Vital Signs: Last Vital Signs Pulse 80 10/09/25 08:15 BP 100/64 10/09/25 08:15 BMI result Body Mass Index 28.0 Const General: comfortable and no acute distress Orientation/consciousness: patient oriented x3 HEENT Other: Unremarkable Head: Yes normal to inspection Neck Neck: Yes normal visual inspection Chest Chest palpation & inspection: normal inspection of the chest Resp Auscultation: clear to auscultation bilaterally Cardio Palpation: normal PMI Heart sounds: S1 normal heart sound present, S2 normal heart sound present, no gallops, no murmurs and no rubs GI Palpation (GI): Soft to palpation Back/Spine/Pelvis Other: unremarkable Skin General skin exam: no rashes or lesions noted Neuro General: patient oriented x3 Extrem General: Yes normal to inspection Psych Mental Status: mental status grossly normal Office Procedures EKG Details: EKG with atrial fibrillation at 80/Min. 62498-[id number], Complete Assessment & Plan Assessment & Plan (1) Persistent atrial fibrillation: Code(s): I48.19 - Other persistent atrial fibrillation Category: Medical Plan: Continue atenolol and digoxin. He does not tolerate higher dose of atenolol due to dizziness. Otherwise, continue with anticoagulation without changes. In the most recent labs from [facility], digoxin level is 0.5. Creatinine is 0.95. (2) Central sleep apnea: Comment: Severe degree of sleep apnea. The AHI was 75/hr and oxygen mellisa was 85% Code(s): G47.31 - Primary central sleep apnea Category: Medical Plan: Continue BiPAP. (3) Precordial chest pain: Code(s): R07.2 - Precordial pain Category: Medical Plan: Suspected chronic noncardiac pains but nothing recently. Myocardial perfusion imaging study in the past with likely normal perfusion. (4) PFO (patent foramen ovale): Code(s): Q21.1 - Atrial septal defect Category: Medical Plan: Was noted on a prior echocardiogram from [facility]. No specific interventions. Plan Discussion Notes During the visit, we discussed the patient's current management of atrial fibrillation, which is stable with ongoing medication. We also reviewed his history of central sleep apnea, noting no significant changes or need for additional interventions at this time. Patient was informed and verbally consented to the use of an ambient scribe for clinic note documentation during this visit. Patient Instructions: - Continue taking prescribed medications as directed. - Schedule regular follow-up appointments to monitor heart rhythm and overall health. - Monitor breathing and report any significant changes or concerns. Coding Level of Care Code Est Pt Level 4 (60384) Complex EM visit Add On G2211 Diagnoses Persistent atrial fibrillation I48.19 Central sleep apnea G47.31 Precordial chest pain R07.2 PFO (patent foramen ovale) Q21.1 CPT Codes EKG - CPT: 51478-[id number], Complete ([id number])
[2025-10-09 08:15] VITALS: BP 100/64; PULSE 80; BMI 28.0
== END 2025-10-09 08:29 | disposition home or self-care (01) ==
LOC: HO.HCS 08:07
PROVIDERS: PCP Internal Medicine; Visit Provider Internal Medicine
DX: I48.19 Other persistent atrial fibrillation (principal); G47.31 Primary central sleep apnea; R07.2 Precordial pain; Q21.10 Atrial septal defect, unspecified
CPT/HCPCS: 93010; 99214; G2211

== ENCOUNTER → 2025-10-09 08:06 | Outpatient (BNVA) | payer MEDICARE, BC, SELFPAY | PROVIDERS: PCP Internal Medicine; Visit Provider Internal Medicine | DX: R07.2 Precordial pain (principal); G47.31 Primary central sleep apnea; Q21.10 Atrial septal defect, unspecified; I48.19 Other persistent atrial fibrillation | CPT/HCPCS: 93005; 99212 ==